=== PATIENT | male | born 1965 | race Caucasian/White ===

== ENCOUNTER 2021-02-10 18:14 | Emergency (ER) | payer OTHER ==
[~2021-02-10 18:14] MED LIST: ACCUPRIL20 MG PO; ACETAMINOPHEN500 M1 PO; ALDACTONE25 MG PO; ATROVENT HFA12.9 GM NEB; BREO ELLIPTA 11 EACH INH; CATAPRES0.1 MG PO; CLARITIN10 MG PO; COMBIVENT RESPIM4 GM INH; FENOFIBRATE160 MG PO; FERROUS GLUCON324 M1 PO; HYDRALAZINE25 MG PO; JANUMET XR 1001 EACH PO; KEFLEX500 MG PO; LASIX20 MG PO; LEXAPRO 10MG TA10 MG PO; LIPITOR40 MG PO; LOPRESSOR50 MG PO; METOPROLOL SUC100 MG PO; MOBIC15 MG PO; MOBIC7.5 MG PO; NEURONTIN300 MG PO; NORCO 5-325 TA1 EACH PO; SINGULAIR10 MG PO; SPIRIVA18 MCG INH; TAMIFLU 75MG CA75 MG PO; TRULICITY0.75 MG/0. SC; VENTOLIN HFA IN18 GM INH; ZPAK PO
[2021-02-10 19:45] LABS: BASOPHIL 0.9 % (0-2); EOSINOPHIL 4.4 % (0-5); HCT 44.1 % (42.0-52.0); HGB 14.1 g/dl (13.2-18.0); MCH 30.1 pg (25.0-31.0); MONOCYTE 8.1 % (0-12); MPV 9.5 fL (6.0-9.5); NEUTROPHIL 72.1 % (41-80); NRBC 0; PLT 196 K/uL (150-400); RBC 4.69 M/uL (4.70-6.00); RDW 14.1 % (11.5-14.0); WBC 6.6 K/uL (4.0-10.5)
[2021-02-10 20:11] LABS: ALBUMIN 3.4 g/dL (3.4-5.0); BILIRUBIN - TOTAL 0.4 mg/dL (0.2-1.0); CREATININE 1.76 mg/dL (0.67-1.17); GLOBULIN (CALCULATION) 4.2 g/dL; POTASSIUM 4.5 mmol/L (3.5-5.1); TOTAL PROTEIN 7.6 g/dL (6.4-8.2)
[2021-02-10 20:14] LABS: BILIRUBIN NEGATIVE (NEGATIVE); BLOOD NEGATIVE Ery/uL (NEGATIVE); CLARITY CLEAR (CLEAR); COLOR YELLOW (YELLOW); GLUCOSE (U) NORMAL (NORMAL); LEUKOCYTES NEGATIVE Leu/uL (NEGATIVE); NITRITE NEGATIVE (NEGATIVE); PROTEIN NEGATIVE (NEGATIVE); UROBILINOGEN 0.2 mg/dL (0.2-1.0)
[2021-02-10 20:22] LABS: PRO-BNP 1621 pg/mL (<125)
[2021-02-10 20:35] LABS: CORONAVIRUS 2019 SARS-COV-2 NEGATIVE (NEGATIVE); INFLUENZA A NAA NEGATIVE (NEGATIVE)
[2021-02-10] MEDS ORDERED: METOLAZONE2.5 MG PO (22:15)
[2021-02-10] MEDS ORDERED: MICRO-K10 MEQ PO (22:15)
== END 2021-02-10 22:20 | disposition home or self-care (01) ==
LOC: FER 18:14
PROVIDERS: Emergency Medicine Emergency Medical Services
DX: I11.0 Hypertensive heart disease with heart failure (principal); I50.9 Heart failure, unspecified; J44.9 Chronic obstructive pulmonary disease, unspecified; E11.9 Type 2 diabetes mellitus without complications; E66.01 Morbid (severe) obesity due to excess calories; F17.210 Nicotine dependence, cigarettes, uncomplicated; Z20.822 Contact with and (suspected) exposure to COVID-19
CPT/HCPCS: 36415; 36600; 71045; 80053; 81003; 82803; 83605; 83880; 84145; 84484; 85025; 87040; 93005; J1940; U0002